=== PATIENT | female | born 1980 | race Caucasian/White ===

== ENCOUNTER 2016-09-17 14:49 | Emergency (ER) | payer MEDICAID ==
[~2016-09-17] VITALS: Wt 79.5 kg
[~2016-09-17 14:49] MED LIST: PREN1TAB49 PO
[2016-09-17] MEDS ORDERED: ACETAMINOPHEN 500 MG TAB PO STA (15:12)
[2016-09-17 15:38] LABS: ADD SCAN DIFF NO
[2016-09-17 15:42] LABS: BASOPHIL # 0.1 10^3/ul (0.0-0.1); BASOPHILS % 0.5 % (0.0-2.0); EOSINOPHILS # 0.1 10^3/ul (0.0-0.5); EOSINOPHILS % 0.8 % (0.0-7.0); HEMOGLOBIN 13.3 g/dl (12.0-16.0); LYMPHOCYTES # 1.8 10^3/ul (0.8-2.9); LYMPHOCYTES % 18.9 % (15.0-51.0); MEAN CORPUSCULAR HEMOGLOBIN 28.6 pg (29.0-33.0); MEAN CORPUSCULAR HGB CONC 32.4 g/dl (32.0-37.0); MEAN CORPUSCULAR VOLUME 88.2 fl (82.0-101.0); MEAN PLATELET VOLUME 12.5 fl (7.4-10.4); MONOCYTE # 0.5 10^3/ul (0.3-0.9); MONOCYTES % 5.6 % (0.0-11.0); NEUTROPHILS % 74.1 % (39.0-77.0); PLATELET COUNT 214 10^3/UL (140-415); RED BLOOD COUNT 4.65 10^6/ul (4.20-5.40); RED CELL DISTRIBUTION WIDTH 13.7 % (11.5-14.5); WHITE BLOOD COUNT 9.5 10^3/ul (4.8-10.8)
[2016-09-17 15:44] LABS: ADD UMIC YES; URINE BILIRUBIN (Dip) NEGATIVE (NEGATIVE); URINE BLOOD (Dip) 3+ (NEGATIVE); URINE COLOR YELLOW (YELLOW); URINE GLUCOSE (Dip) NEGATIVE (NEGATIVE); URINE KETONES (Dip) NEGATIVE (NEGATIVE); URINE LEUKOCYTE ESTERASE (Dip) TRACE (NEGATIVE); URINE NITRITE (Dip) NEGATIVE (NEGATIVE); URINE TOTAL PROTEIN (Dip) TRACE (NEGATIVE); URINE UROBILINOGEN (Dip) 0.2 E.U./dL (0.1-1.0)
--- NOTE | 2016-09-17 15:56 | RADRPT ---
PROCEDURE: US OB/Pelvis. CLINICAL INDICATION: Positive . Vaginal bleeding. TECHNIQUE: Multiple sonographic images of the pelvis were obtained. Transabdominal and transvagin al views of the pelvis are available for review. The images were reviewed on a PACS workstation. COMPARISON: No prior studies are available for comparison. FINDINGS: The uterus measures 8.2 x 5.0 x 5.5 cm. There is no intrauterine or gestational sac ident ified. Endometrial echo complex measures 6.0 mm. The right ovary measures 3.8 cm. Left ovary measu res 2.4 cm. .The bilateral ovaries appear normal in size, shape, morphology, and flow. . No adnexa l masses are seen. There is no free fluid. IMPRESSION: 1. Normal pelvic ultrasound with no intrauterine , adnexal masses or free fluid identified . If the patient has a positive test, differential includes early , recent and ectopic cannot be completely excluded. Recommend clinical and laboratory correlation and follow up if indicated. RPTAT: QQ .Pete Hopkins MD, Date Time Electronically viewed and signed by .Pete Hopkins MD, on 09/17/2016 15:56 .L/
[2016-09-17 16:10] LABS: BACTERIA,URINE MANY; SQUAMOUS EPITHELIAL CELL,UR MODERATE
--- NOTE | 2016-09-17 16:41 | ERD ---
ER Documentation Chief Complaint Date/Time DATE: 09/17/16 TIME: 16:38 Chief Complaint vag bleed, 6 wks preg HPI This a 36-year-old female who presents to the emergency department today for vaginal bleeding for the past day. States she is passing clots. States that she is approximately 5 or 6 weeks . States that she saw her [facility] [employer] on Sunday and everything was fine. States she did not have an ultrasound at that time. States that she has a follow-up appointment on October 03. Denies any fevers or chills, dysuria ROS All systems reviewed and are negative except as per history of present illness. Medications Home Meds Active Scripts Acetaminophen* (Tylophen*) 500 Mg Capsule, 1 CAP PO Q6H Y for PAIN AND OR ELEVATED TEMP, #30 CAP Prov:MANAS MEHTA PA-C 09/17/16 Reported Medications Vits W-Ca,Fe,Fa(<1MG) () 1 Tab Tablet, 1 PO DAILY 11/25/10 PMhx/Soc Medical and Surgical Hx: pt denies Medical Hx, pt denies Surgical Hx Hx Alcohol Use: No Hx Substance Use: No Hx Tobacco Use: No Smoking Status: Never smoker Physical Exam Vitals Vital Signs Date Time Temp Pulse Resp B/P Pulse Ox O2 Delivery O2 Flow Rate FiO2 09/17/16 17:16 97.9 96 18 131/80 100 Room Air 09/17/16 14:52 97.8 97 20 135/82 100 Physical Exam Const: No acute distress Head: Atraumatic Eyes: Normal Conjunctiva ENT: Normal External Ears, Nose and Mouth. Neck: Full range of motion..~ No meningismus. Resp: Clear to auscultation bilaterally Cardio: Regular rate and rhythm, no murmurs Abd: Soft, mild suprapubic tenderness non distended. Normal bowel sounds. No right lower quadrant pain. No left lower quadrant pain. No tenderness McBurney's. Skin: No petechiae or rashes Back: No midline or flank tenderness Ext: No cyanosis, or edema Neur: Awake and alert Psych: Normal Mood and Affect Result Diagram: 09/17/16 1535 Results 24 hrs Laboratory Tests Test 09/17/16 15:35 White Blood Count 9.510^3/ul Red Blood Count 4.6510^6/ul Hemoglobin 13.3g/dl Hematocrit 41.0% Mean Corpuscular Volume 88.2fl Mean Corpuscular Hemoglobin 28.6pg Mean Corpuscular Hemoglobin Concent 32.4g/dl Red Cell Distribution Width 13.7% Platelet Count 45163^3/UL Mean Platelet Volume 12.5fl Neutrophils % 74.1% Lymphocytes % 18.9% Monocytes % 5.6% Eosinophils % 0.8% Basophils % 0.5% Nucleated Red Blood Cells % 0.0/100WBC Neutrophils # 7.010^3/ul Lymphocytes # 1.810^3/ul Monocytes # 0.510^3/ul Eosinophils # 0.110^3/ul Basophils # 0.110^3/ul Nucleated Red Blood Cells # 0.010^3/ul Urine Color YELLOW Urine Clarity CLOUDY Urine pH 5.5 Urine Specific [place] >=1.030 Urine Ketones NEGATIVE Urine Nitrite NEGATIVE Urine Bilirubin NEGATIVE Urine Urobilinogen 0.2 E.U./dL Urine Leukocyte Esterase TRACE Urine Microscopic RBC 2-5/HPF Urine Microscopic WBC 0-2/HPF Urine Squamous Epithelial Cells MODERATE Urine Amorphous Urates MANY Urine Bacteria MANY Urine Hemoglobin 3+ Urine Glucose NEGATIVE% Urine Total Protein TRACE Beta HCG, Quantitative 160.9mIU/ml Current Medications Medications (Trade) Dose Ordered Sig/Bucky Route PRN Reason Start Time Stop Time Status Last Admin Dose Admin Acetaminophen (Tylenol Tab) 500 mg ONCE STAT PO 09/17/16 15:12 09/17/16 15:16 DC 09/17/16 15:27 DIAGNOSTIC IMAGING REPORT Patient: MAYRA YOUSIF : 1980 Age: 36 Sex: F [id number] [id number] DOS: 09/17/16 1512 Ordering MD: MANAS MEHTA PA-C Location: [facility] Room/Bed: PROCEDURE: US OB/Pelvis. CLINICAL INDICATION: Positive . Vaginal bleeding. TECHNIQUE: Multiple sonographic images of the pelvis were obtained. Transabdominal and transvaginal views of the pelvis are available for review. The images were reviewed on a PACS workstation. COMPARISON: No prior studies are available for comparison. FINDINGS: The uterus measures 8.2 x 5.0 x 5.5 cm. There is no intrauterine or gestational sac identified. Endometrial echo complex measures 6.0 mm. The right ovary measures 3.8 cm. Left ovary measures 2.4 cm. .The bilateral ovaries appear normal in size, shape, morphology, and flow. . No adnexal masses are seen. There is no free fluid. IMPRESSION: 1. Normal pelvic ultrasound with no intrauterine , adnexal masses or free fluid identified. If the patient has a positive test, differential includes early , recent and ectopic cannot be completely excluded. Recommend clinical and laboratory correlation and follow up if indicated. RPTAT: QQ .Pete Hopkins MD, MD Date Time Electronically viewed and signed by .Pete Hopkins MD, MD on 09/17/2016 15:56 .L/ CC: MANAS MEHTA PA-C Procedures/MDM This is a 36-year-old female presents to the emergency department today for vaginal bleeding for the past day. Patient indicated she was a proximal 5- 6 weeks . Given this I did obtain a complete OB workup Laboratory work shows no elevated white blood cell count. She is not anemic. Platelets are within normal limits. UA shows trace leukocyte esterase. Beta quant hCG 160.9 Rh status is O+ Ultrasound shows a normal pelvic ultrasound with no intrauterine , adnexal masses or free fluid. There is no intrauterine or gestational sac identified. Patient symptoms at this time most consistent with vaginal bleeding in early and likely failed as her beta quant is very low, versus early normal . Ectopic cannot be ruled out at this time however patient does not have significant amount of pain and she reported passing clots. Patient was given Tylenol here in the emergency department. I will give her prescription for home. I have explained the results the patient multiple times. Patient was instructed to call her [facility] clinic and get a repeat beta quant in 48 hours. She may return here for that if she is unable to see her legal process specialist earlier. Patient understood. At this time the patient is stable for discharge and outpatient management. Patient should follow up with their PCP in the next 1-2 days. They may return to the emergency department sooner for any persistent or worsening of symptoms. Patient understood and agreed with the plan. Departure Diagnosis: Primary Impression: Vaginal bleeding in patient at less than 20 weeks gestation Condition: MANAS Roberts PA-C Sep 17, 2016 16:41
[2016-09-17] MEDS ORDERED: ACET500C5 PO (16:52)
[2016-09-17 17:16] VITALS: BP 131/80; PULSE 96; RESP 18; TEMP 97.9
== END 2016-09-17 17:17 | disposition home or self-care (01) ==
LOC: FTE 14:49
DX: O20.9 Hemorrhage in early pregnancy, unspecified (principal); Z3A.01 Less than 8 weeks gestation of pregnancy
CPT/HCPCS: 36415; 76801; 76817; 81001; 84702; 85025; 86900; 86901; Z7502; Z7610

== ENCOUNTER 2016-09-20 08:39 | Emergency (ER) | payer MEDICAID ==
[~2016-09-20] VITALS: Ht 157.5 cm; Wt 89.0 kg
[~2016-09-20 08:39] MED LIST changes: +ACET500C5 PO
[2016-09-20 08:42] VITALS: Ht 157.5 cm; Wt 89.0 kg
[2016-09-20] MEDS ORDERED: ONDANSETRON (ODT) 4 MG TAB ODT STA (09:13)
[2016-09-20 09:31] LABS: ADD SCAN DIFF NO
[2016-09-20 09:34] LABS: ADD UMIC YES; URINE BILIRUBIN (Dip) NEGATIVE (NEGATIVE); URINE BLOOD (Dip) 3+ (NEGATIVE); URINE COLOR LT. YELLOW (YELLOW); URINE GLUCOSE (Dip) NEGATIVE (NEGATIVE); URINE KETONES (Dip) NEGATIVE (NEGATIVE); URINE LEUKOCYTE ESTERASE (Dip) 1+ (NEGATIVE); URINE NITRITE (Dip) NEGATIVE (NEGATIVE); URINE TOTAL PROTEIN (Dip) NEGATIVE (NEGATIVE); URINE UROBILINOGEN (Dip) 0.2 E.U./dL (0.1-1.0)
[2016-09-20 09:36] LABS: BASOPHIL # 0.1 10^3/ul (0.0-0.1); BASOPHILS % 0.6 % (0.0-2.0); EOSINOPHILS # 0.1 10^3/ul (0.0-0.5); EOSINOPHILS % 0.7 % (0.0-7.0); HEMATOCRIT 40.8 % (37.0-47.0); HEMOGLOBIN 13.5 g/dl (12.0-16.0); LYMPHOCYTES # 1.5 10^3/ul (0.8-2.9); LYMPHOCYTES % 18.2 % (15.0-51.0); MEAN CORPUSCULAR HEMOGLOBIN 28.8 pg (29.0-33.0); MEAN CORPUSCULAR HGB CONC 33.1 g/dl (32.0-37.0); MEAN PLATELET VOLUME 12.3 fl (7.4-10.4); MONOCYTE # 0.4 10^3/ul (0.3-0.9); MONOCYTES % 5.1 % (0.0-11.0); NEUTROPHIL # 6.3 10^3/ul (1.6-7.5); PLATELET COUNT 208 10^3/UL (140-415); RED BLOOD COUNT 4.69 10^6/ul (4.20-5.40); RED CELL DISTRIBUTION WIDTH 13.3 % (11.5-14.5); WHITE BLOOD COUNT 8.4 10^3/ul (4.8-10.8)
[2016-09-20 09:42] LABS: BACTERIA,URINE MANY
--- NOTE | 2016-09-20 09:55 | RADRPT ---
PROCEDURE: US OB. CLINICAL INDICATION: Vaginal bleeding. TECHNIQUE: Transabdominal and transvaginal imaging of the uterus was performed. COMPARISON: 09/17/2016. FINDINGS: There is no intrauterine . The endometrium is mildly thickened and heterogeneous in echote xture. A corpus luteum cyst is suggested within the right ovary. Normal-appearing follicles are pr esent within the left ovary. No worrisome adnexal mass. There is no free fluid or fluid collection . IMPRESSION: No intrauterine or worrisome adnexal mass. Recommend correlation with serial serum maternal beta HCG levels and close interval sonographic foll ow-up. RPTAT: EE .Cyo Alston MD, MD Date Time Electronically viewed and signed by .Coy Alston MD, MD on 09/20/2016 10:00 .C/
--- NOTE | 2016-09-20 13:41 | ERD ---
ER Documentation Chief Complaint Date/Time DATE: 09/20/16 TIME: 13:38 Chief Complaint FOR REPEAT BHCG HERE LAST SUNDAY, HPI This patient is a 36-year-old female presenting to the emergency department for repeat beta hCG after being tested for it approximately 3 days ago. She has had some mild vaginal spotting but no significant bleeding. She also complains of intermittent nausea. LMP was 08/11/2016. Her vaginal bleeding has decreased since she was seen here 3 days ago. She denies abdominal pain, suprapubic pain , back pain, suprapubic cramping, vomiting, diarrhea, fevers, chills, or other symptoms. ROS All systems reviewed and are negative except as per history of present illness. Medications Home Meds Active Scripts Acetaminophen* (Tylophen*) 500 Mg Capsule, 1 CAP PO Q6H Y for PAIN AND OR ELEVATED TEMP, #30 CAP Prov:MANAS MEHTA PA-C 09/17/16 Reported Medications Vits W-Ca,Fe,Fa(<1MG) () 1 Tab Tablet, 1 PO DAILY 11/25/10 PMhx/Soc Medical and Surgical Hx: pt denies Medical Hx, pt denies Surgical Hx Hx Alcohol Use: No Hx Substance Use: No Hx Tobacco Use: No FmHx Noncontributory for chief complaint Physical Exam Vitals Vital Signs Date Time Temp Pulse Resp B/P Pulse Ox O2 Delivery O2 Flow Rate FiO2 09/20/16 08:42 98.1 80 20 130/80 99 Physical Exam Const: Nontoxic, well-appearing female resting in no acute distress. Head: Atraumatic Eyes: Normal Conjunctiva ENT: Normal External Ears, Nose and Mouth. Neck: Full range of motion..~ No meningismus. Resp: Clear to auscultation bilaterally Cardio: Regular rate and rhythm, no murmurs Abd: Soft, non tender, non distended. Normal bowel sounds : There is no suprapubic tenderness to palpation. There is no CVA tenderness. Skin: No petechiae or rashes Back: No midline or flank tenderness Ext: No cyanosis, or edema Neur: Awake and alert Psych: Normal Mood and Affect Result Diagram: 09/20/16923 Results 24 hrs Laboratory Tests Test 09/20/16 09:16 09/20/16 09:24 Urine Color LT. YELLOW Urine Clarity CLEAR Urine pH 5.5 Urine Specific [place] 1.025 Urine Ketones NEGATIVE Urine Nitrite NEGATIVE Urine Bilirubin NEGATIVE Urine Urobilinogen 0.2 E.U./dL Urine Leukocyte Esterase 1+ Urine Microscopic RBC 10-25/HPF Urine Microscopic WBC 5-10/HPF Urine Epithelial Cells MODERATE Urine Bacteria MANY Urine Hemoglobin 3+ Urine Glucose NEGATIVE% Urine Total Protein NEGATIVE White Blood Count 8.410^3/ul Red Blood Count 4.6910^6/ul Hemoglobin 13.5g/dl Hematocrit 40.8% Mean Corpuscular Volume 87.0fl Mean Corpuscular Hemoglobin 28.8pg Mean Corpuscular Hemoglobin Concent 33.1g/dl Red Cell Distribution Width 13.3% Platelet Count 99668^3/UL Mean Platelet Volume 12.3fl Neutrophils % 75.0% Lymphocytes % 18.2% Monocytes % 5.1% Eosinophils % 0.7% Basophils % 0.6% Nucleated Red Blood Cells % 0.0/100WBC Neutrophils # 6.310^3/ul Lymphocytes # 1.510^3/ul Monocytes # 0.410^3/ul Eosinophils # 0.110^3/ul Basophils # 0.110^3/ul Nucleated Red Blood Cells # 0.010^3/ul Beta HCG, Quantitative 240.7mIU/ml Current Medications Medications (Trade) Dose Ordered Sig/Bucky Route PRN Reason Start Time Stop Time Status Last Admin Dose Admin Ondansetron HCl (Zofran Odt) 4 mg ONCE STAT ODT 09/20/16 09:13 09/20/16 09:14 DC 09/20/16 09:17 [place] [address] Radiology Main Line: [phone] DIAGNOSTIC IMAGING REPORT Patient: MAYRA YOUSIF : 1980 Age: 36 Sex: F MR #: [id number] DOS: 09/20/16 0913 Ordering MD: MED FARIAS PA-C [facility] Room/Bed: PROCEDURE: US OB. CLINICAL INDICATION: Vaginal bleeding. TECHNIQUE: Transabdominal and transvaginal imaging of the uterus was performed. COMPARISON: 09/17/2016. FINDINGS: There is no intrauterine . The endometrium is mildly thickened and heterogeneous in echotexture. A corpus luteum cyst is suggested within the right ovary. Normal-appearing follicles are present within the left ovary. No worrisome adnexal mass. There is no free fluid or fluid collection. IMPRESSION: No intrauterine or worrisome adnexal mass. Recommend correlation with serial serum maternal beta HCG levels and close interval sonographic follow-up. RPTAT: EE .Coy Alston MD, MD Date Time Electronically viewed and signed by .Coy Alston MD, MD on 09/20/2016 10:00 .C/ CC: MED FARIAS PA-C Procedures/[facility] White blood cell count is 8.4, hemoglobin 13.5. Quantitative hCG is 240.7, which has more than doubled since her last visit 2 days ago. Patient is O+. Urinalysis showed 1+ leukocytes but the patient was asymptomatic showing no signs of dysuria. Urinalysis was sent for urine culture to further determine bacterial growth and she was not treated currently because she was asymptomatic and had a negative clinical examination. Pelvic ultrasound shows No intrauterine or worrisome adnexal mass. Radiology interpreted by the radiologist. Differential includes early , missed or ectopic . No adnexal masses appreciated. Patient presents with mild vaginal spotting. Patient will be discharged home with instructions on the importance of a 2 day follow-up. Signs and symptoms do not suggest endometritis or septic . Patient return sooner for fevers, vomiting, shortness of breath or chest pain. Signs and symptoms do not suggest appendicitis, acute abdomen but patient should recheck as directed. I discussed this case with Dr. Ollie Staton, who agreed with the history, clinical examination, and overall ED course. He recommended close follow-up in 48 hours here or with the patient's IMPROVEMENT MANAGER specialist. Departure Diagnosis: Primary Impression: Vaginal bleeding in patient at less than 20 weeks ges... Condition: Fair Patient Instructions: Bleeding During Early Referrals: IMPROVEMENT MANAGER [place] [id number] [address] OFFICE FAX , [address] [place] [address] DR. PHILLIPS, [place] [address] [place] [address] [address] OLIVAS, [facility] [address] [facility], [address] [address] DR [facility]ZR, [facility] [address] [place] [address] [facility] [address] [place] [address] [facility] [address] - [address] TILLEY[address] [place] [address], [place] [address] DR HOLDEN, KAMAR [address] [facility]. [address], [place] [address] DR BRODERICK, [facility] [address] [place], [place] [id number] Additional Instructions: No mas mejor en 2-3 meyers, regresar. Mas peor en 24 horas, regresear rapidamente. Ir a doctor primario in 5-7 meyers. Usar instrucciones cuando roma medicamento. MED FARIAS PA-C Sep 20, 2016 13:41
== END 2016-09-20 11:15 | disposition home or self-care (01) ==
LOC: FTE 08:39
DX: O20.9 Hemorrhage in early pregnancy, unspecified (principal); Z3A.00 Weeks of gestation of pregnancy not specified
CPT/HCPCS: 76801; 76817; 81001; 84702; 85025; 87086; Z7502; Z7610

== ENCOUNTER 2016-10-21 10:22 | Emergency (ER) | payer MEDICAID ==
[~2016-10-21] VITALS: Ht 165.1 cm; Wt 99.0 kg
[2016-10-21 10:24] VITALS: Ht 165.1 cm; Wt 99.0 kg
[2016-10-21 11:28] LABS: ADD SCAN DIFF NO
[2016-10-21 11:30] LABS: BASOPHILS % 0.5 % (0.0-2.0); EOSINOPHILS # 0.1 10^3/ul (0.0-0.5); EOSINOPHILS % 2.1 % (0.0-7.0); HEMATOCRIT 39.9 % (37.0-47.0); HEMOGLOBIN 13.2 g/dl (12.0-16.0); LYMPHOCYTES # 1.6 10^3/ul (0.8-2.9); LYMPHOCYTES % 25.7 % (15.0-51.0); MEAN CORPUSCULAR HEMOGLOBIN 29.5 pg (29.0-33.0); MEAN CORPUSCULAR HGB CONC 33.1 g/dl (32.0-37.0); MEAN CORPUSCULAR VOLUME 89.3 fl (82.0-101.0); MEAN PLATELET VOLUME 12.3 fl (7.4-10.4); MONOCYTE # 0.4 10^3/ul (0.3-0.9); MONOCYTES % 6.6 % (0.0-11.0); NEUTROPHILS % 64.6 % (39.0-77.0); PLATELET COUNT 172 10^3/UL (140-415); RED BLOOD COUNT 4.47 10^6/ul (4.20-5.40); RED CELL DISTRIBUTION WIDTH 13.6 % (11.5-14.5); WHITE BLOOD COUNT 6.2 10^3/ul (4.8-10.8)
--- NOTE | 2016-10-21 11:46 | RADRPT ---
PROCEDURE: OB Ultrasound. CLINICAL INDICATION: Positive test. Vaginal bleeding. TECHNIQUE: Ultrasound of the pelvis was performed with transabdominal and transvaginal sonography in the axial and sagittal planes. COMPARISON: 09/20/2016. FINDINGS: There is no intrauterine gestational sac. The uterus measures 8.0 x 4.4 x 5.0 cm. Endometrial thic kness is 7 mm. There is a posterior fundal fibroid measuring 1.7 x 1.6 x 1.4 cm. There is no other uterine mass. The right ovary appears normal measuring 2.6 x 1.4 x 1.6 cm. The left ovary appears normal measuring 2.9 x 2.0 x 2.4 cm. Color Doppler and pulsed Doppler sonography demonstrate normal flow to the ovaries. There is no other pelvic mass or free fluid. IMPRESSION: 1. No intrauterine gestational sac. If the patient has a positive test, ectopic gestatio n cannot be excluded. 2. Posterior fundal fibroid measuring 1.7 cm. 3. Otherwise normal study. RPTAT: QQ .Ollie Duncan MD, MD Date Time Electronically viewed and signed by .Ollie Duncan MD, on 10/21/2016 11:46 .R/
[2016-10-21 14:00] LABS: ADD UMIC YES; UR ASCORBIC ACID 40 mg/dL (NEGATIVE); UR BACTERIA FEW /HPF (NONE SEEN); UR BILIRUBIN (Dip) NEGATIVE (NEGATIVE); UR BLOOD (Dip) 3+ mg/dL (NEGATIVE); UR CLARITY CLOUDY (CLEAR); UR COLOR RED (YELLOW); UR GLUCOSE (Dip) NEGATIVE (NEGATIVE); UR KETONES (Dip) NEGATIVE (NEGATIVE); UR LEUKOCYTE ESTERASE (Dip) 1+ Leu/ul (NEGATIVE); UR MUCUS FEW /HPF (NONE SEEN); UR NITRITE (Dip) NEGATIVE (NEGATIVE); UR RBC > 182 /HPF (0-5); UR SPECIFIC GRAVITY (Dip) 1.031 (1.003-1.030); UR SQUAMOUS EPITHELIAL CELL MODERATE /HPF (FEW); UR TOTAL PROTEIN (Dip) 2+ mg/dl (NEGATIVE); UR UROBILINOGEN (Dip) NEGATIVE (NEGATIVE); UR WBC CLUMPS FEW /HPF (NONE SEEN)
[2016-10-21] MEDS ORDERED: ACET325T33 PO (14:28)
[2016-10-21] MEDS ORDERED: NITR-58 PO (14:28)
--- NOTE | 2016-10-21 15:53 | ERD ---
ER Documentation Chief Complaint Date/Time DATE: 10/21/16 TIME: 15:49 Chief Complaint 5 WEEKS ,VAGINAL BLEEDING,PELVIC PAIN HPI 36-year-old female patient who is a A0 presents to the ED complaining of vaginal bleeding that occurred yesterday. States that she started to spot yesterday and it became slightly heavier today. Patient had to change 2 pads. Denies any chest pain, shortness of breath, wheezing, vaginal discharge, abdominal pain, nausea, vomiting, diarrhea, constipation. Reports that one month ago, she was experiencing similar symptoms. States that the bleeding did resolve and came back yesterday. Reports that her last menses was on August 10, 2016. Reports that she sees an [facility] but is unsure of the [facility] WORKER [facility]'s name. ROS All systems reviewed and are negative except as per history of present illness. Medications Home Meds Active Scripts Ibuprofen* (Motrin*) 600 Mg Tab, 600 MG PO Q6, #30 TAB Prov:LEONIDAS AVENDANO PA-C 10/23/16 Acetaminophen* (Tylenol*) 325 Mg Tablet, 2 TAB PO Q8 Y for PAIN AND OR ELEVATED TEMP, #20 TAB Prov:LUCY JARAMILLO PA-C 10/21/16 Nitrofurantoin Monohyd Macrocr* (Macrobid*) 100 Mg Capsr, 100 MG PO BID for 7 Days, CAP Prov:LUCY JARAMILLO PA-C 10/21/16 Acetaminophen* (Tylophen*) 500 Mg Capsule, 1 CAP PO Q6H Y for PAIN AND OR ELEVATED TEMP, #30 CAP Prov:MANAS MEHTA PA-C 09/17/16 Reported Medications Vits W-Ca,Fe,Fa(<1MG) () 1 Tab Tablet, 1 PO DAILY 11/25/10 Allergies Allergies: Coded Allergies: No Known Allergy (Unverified , 10/23/16) PMhx/Soc Medical and Surgical Hx: pt denies Medical Hx, pt denies Surgical Hx Hx Alcohol Use: No Hx Substance Use: No Hx Tobacco Use: No Smoking Status: Never smoker Physical Exam Vitals Vital Signs Date Time Temp Pulse Resp B/P Pulse Ox O2 Delivery O2 Flow Rate FiO2 10/21/16 10:24 97.9 91 18 124/69 99 Physical Exam Const: [id number], well-nourished. In no acute distress. Head: Atraumatic, normocephalic Eyes: Normal Conjunctiva without injection. No purulent discharge. ENT: Normal external ear, nose. Moist oropharynx without tonsillar exudates. Non -erythematous pharynx. Uvula midline. No drooling. No trismus. Neck: No cervical midline tenderness. Full range of motion. No meningismus. No cervical lymphadenopathy. No JVD. Resp: Clear to auscultation bilaterally. No wheezing, rhonchi, rales, or crackles. No accessory muscle use. No retractions. Cardio: Regular rate and rhythm. No murmurs, rubs or gallops. Abd: Soft, nontender, non distended. Normal bowel sounds. No palpable masses. No rebound tenderness. No guarding. Negative McBurney's point. Negative psoas sign. Negative obturator sign. Skin: No petechiae or rashes Back: No midline tenderness. No CVA tenderness. Ext: No cyanosis, or edema. Neur: Awake and alert. Normal gait. Normal coordination. Psych: Normal Mood and Affect Result Diagram: 10/21/16 1110 Results 24 hrs Laboratory Tests Test 10/21/16 11:10 10/21/16 13:00 White Blood Count 6.210^3/ul Red Blood Count 4.4710^6/ul Hemoglobin 13.2g/dl Hematocrit 39.9% Mean Corpuscular Volume 89.3fl Mean Corpuscular Hemoglobin 29.5pg Mean Corpuscular Hemoglobin Concent 33.1g/dl Red Cell Distribution Width 13.6% Platelet Count 13044^3/UL Mean Platelet Volume 12.3fl Neutrophils % 64.6% Lymphocytes % 25.7% Monocytes % 6.6% Eosinophils % 2.1% Basophils % 0.5% Nucleated Red Blood Cells % 0.0/100WBC Neutrophils # 4.010^3/ul Lymphocytes # 1.610^3/ul Monocytes # 0.410^3/ul Eosinophils # 0.110^3/ul Basophils # 0.010^3/ul Nucleated Red Blood Cells # 0.010^3/ul Beta HCG, Quantitative 597.1mIU/ml Urine Color RED Urine Clarity CLOUDY Urine pH 6.0 Urine Specific [place] 1.031 Urine Ketones NEGATIVEmg/dL Urine Nitrite NEGATIVEmg/dL Urine Bilirubin NEGATIVEmg/dL Urine Urobilinogen NEGATIVEmg/dL Urine Leukocyte Esterase 1+Demian/ul Urine Microscopic RBC > 182/HPF Urine Microscopic WBC 131/HPF Urine Squamous Epithelial Cells MODERATE/HPF Urine Bacteria FEW/HPF Urine Mucus FEW/HPF Urine Hemoglobin 3+mg/dL Urine Glucose NEGATIVEmg/dL Urine Total Protein 2+mg/dl Procedures/MDM This is a 36-year-old female patient with no significant past medical history presents to the ED as a presents to the ED for vaginal bleeding. Patient is afebrile and nontoxic-appearing. Patient has normal vital signs. An ultrasound, beta-hCG, CBC, type and RH, UA was ordered to evaluate patient. CBC: No evidence of severe infection or anemia Urine: No elevation in nitrites, leukocyte esterase, hematuria. No evidence of UTI Rh: O positive No indication for Rhogam at this time. beta Hc.1 PROCEDURE: OB Ultrasound. CLINICAL INDICATION: Positive test. Vaginal bleeding. TECHNIQUE: Ultrasound of the pelvis was performed with transabdominal and transvaginal sonography in the axial and sagittal planes. COMPARISON: 09/20/2016. FINDINGS: There is no intrauterine gestational sac. The uterus measures 8.0 x 4.4 x 5.0 cm. Endometrial thickness is 7 mm. There is a posterior fundal fibroid measuring 1.7 x 1.6 x 1.4 cm. There is no other uterine mass. The right ovary appears normal measuring 2.6 x 1.4 x 1.6 cm. The left ovary appears normal measuring 2.9 x 2.0 x 2.4 cm. Color Doppler and pulsed Doppler sonography demonstrate normal flow to the ovaries. There is no other pelvic mass or free fluid. IMPRESSION: 1. No intrauterine gestational sac. If the patient has a positive test, ectopic gestation cannot be excluded. 2. Posterior fundal fibroid measuring 1.7 cm. 3. Otherwise normal study. Patient's beta hCG was 240.7 on September 20, 2016. Today her beta hCG is 597.1. Patient likely has a failed gestation as there is no intrauterine gestational sac noted on her ultrasound. This was discussed with the laborist on calll, Dr. Jeong. Patient likely has a failed gestation however she was still instructed to follow-up in 2 days for repeat beta hCG to rule out ectopic as there could be a slight chance since patient has a positive . Patient's bleeding symptoms have stabilized while in the department. At this time ectopic cannot be ruled out. Low suspicion for symptomatic anemia, sepsis, PID, appendicitis, ovarian torsion, tubo- ovarian abscess, surgical abdomen, or other emergent conditions. Patient was educated that there is a risk for threatened . Discharge medications: Tylenol, Macrobid Patient to follow up with [facility] in 2 days for further evaluation and treatment for further evaluation and treatment. Patient is to return sooner to the ED for any worsening symptoms. Patient's questions were answered. Patient understood and agreed with discharge plan. Departure Diagnosis: Primary Impression: Vaginal bleeding in patient at less than 20 weeks ges... Condition: Stable Patient Instructions: Urinary Tract Infections in Women, Bleeding During Early Referrals: ON LICENSE OF [facility] YOU HAVE RECEIVED A MEDICAL SCREENING EXAM AND THE RESULTS INDICATE THAT YOU DO NOT HAVE A CONDITION THAT REQUIRES URGENT TREATMENT IN THE EMERGENCY DEPARTMENT. FURTHER EVALUATION AND TREATMENT OF YOUR CONDITION CAN WAIT UNTIL YOU ARE SEEN IN YOUR DOCTORS OFFICE WITHIN THE NEXT 1-2 DAYS. IT IS YOUR RESPONSIBILITY TO MAKE AN APPOINTMENT FOR FOLOW-UP CARE. IF YOU HAVE A PRIMARY DOCTOR --you should call your primary doctor and schedule an appointment IF YOU DO NOT HAVE A PRIMARY DOCTOR YOU CAN CALL OUR PHYSICIAN REFERRAL HOTLINE AT IF YOU CAN NOT AFFORD TO SEE A PHYSICIAN YOU CAN CHOSE FROM THE FOLLOWING [facility] [address] [facility]. [facility] [address] [facility] [facility] [address] [facility]. [facility] [address] [facility]. [facility] [address] [facility]. [facility]. [address] [facility] YOU HAVE RECEIVED A MEDICAL SCREENING EXAM AND THE RESULTS INDICATE THAT YOU DO NOT HAVE A CONDITION THAT REQUIRES URGENT TREATMENT IN THE EMERGENCY DEPARTMENT. FURTHER EVALUATION AND TREATMENT OF YOUR CONDITION CAN WAIT UNTIL YOU ARE SEEN IN YOUR DOCTORS OFFICE WITHIN THE NEXT 1-2 DAYS. IT IS YOUR RESPONSIBILITY TO MAKE AN APPOINTMENT FOR FOLOW-UP CARE. IF YOU HAVE A PRIMARY DOCTOR --you should call your primary doctor and schedule and appointment IF YOU DO NOT HAVE A PRIMARY DOCTOR YOU CAN CALL OUR PHYSICIAN REFERRAL HOTLINE AT . IF YOU CAN NOT AFFORD TO SEE A PHYSICIAN YOU CAN CHOSE FROM THE FOLLOWING [facility] INSTITUTIONS: [facility] [address] [place] [address] [facility] [address] [place] [address] [facility] [address] [place] [address] [facility] URGENT CARE/SPECIALTIES Additional Instructions: Volver al ED en 2 [place] para repetir la beta obra de juan de Hcg para descartar embarazo ectpico. Regrese a estas instalaciones si no se mejora aftab esperbamos o aftab le dijimos - por empeoramiento de la hemorragia vaginal, dolor abdominal, dolor p lvico, nuseas, vmitos, fiebre. LUCY JARAMILLO PA-C Oct 21, 2016 15:53
--- NOTE | 2016-10-29 08:30 | CONS ---
DATE OF ADMISSION: 10/21/2016 DATE OF CONSULTATION: 10/21/2016 Thank you for consulting with us. HISTORY OF PRESENT ILLNESS: This is a 56-year-old 3 para 2, admitted to the emergency room with chief complaint of spotting. Patient had the same history last month in September. No other associated symptoms. No abdominal pain. PAST MEDICAL HISTORY: Denies. PAST SURGICAL HISTORY: Denies. ALLERGIES: NKDA. PHYSICAL EXAMINATION: VITAL SIGNS: Stable. GENERAL APPEARANCE: Normal. ABDOMEN: Nontender, nondistended. GENITAL: 1-2 clots were noted in the vaginal vault, status post . LABORATORY: Ultrasound showed endometrial thickness of 7 mm and no sign of ectopic . ASSESSMENT AND PLAN: This is a 56-year-old with possible diagnosis of complete versus ectopic and this is a desired . The patient was advised to come back to the emergency room in 2 days for repeat beta hCG. Also, she knows that if she has any abdominal pain or any vaginal bleeding, any unusual symptoms, she needs to come back to the emergency room immediately as ectopic has not been completely ruled out in this visit. Dictated By: Richard Rosas MD /sumit/colleen /Document#: [id number]
== END 2016-10-21 15:08 | disposition home or self-care (01) ==
LOC: FTE 10:22
DX: O20.9 Hemorrhage in early pregnancy, unspecified (principal); R10.2 Pelvic and perineal pain; Z3A.01 Less than 8 weeks gestation of pregnancy
CPT/HCPCS: 36415; 76801; 76817; 81001; 84702; 85025; 86900; 86901

== ENCOUNTER 2016-10-23 08:51 | Emergency (ER) | payer MEDICAID ==
[~2016-10-23] VITALS: Ht 162.6 cm; Wt 100.0 kg
[~2016-10-23 08:51] MED LIST changes: +ACET325T33 PO; +NITR-58 PO
[2016-10-23 08:54] VITALS: Ht 162.6 cm; Wt 100.0 kg
--- NOTE | 2016-10-23 09:58 | ERD ---
ER Documentation Chief Complaint Date/Time DATE: 10/23/16 TIME: 09:55 Chief Complaint PT here for 48 follow up blood and ultrasound, VB/4 weeks preg. HPI This is a 36-year-old female 3 para 2 A0 who returns to the emergency department for a recheck of blood work and first trimester ultrasound. Patient was seen and evaluated at this emergency department 48 hours ago after she started experiencing pain and vaginal bleeding. It was presumed that the patient likely had a failed gestation however she was instructed to return for follow-up lab work and to rule out ectopic . She denies abdominal pain , bleeding, nausea, vomiting, abdominal pain, chest pain or shortness of breath. She denies vaginal discharge, fever, or chills. ROS All systems reviewed and are negative except as per history of present illness. Medications Home Meds Active Scripts Acetaminophen* (Tylenol*) 325 Mg Tablet, 2 TAB PO Q8 Y for PAIN AND OR ELEVATED TEMP, #20 TAB Prov:LUCY JARAMILLO PA-C 10/21/16 Nitrofurantoin Monohyd Macrocr* (Macrobid*) 100 Mg Capsr, 100 MG PO BID for 7 Days, CAP Prov:LUCY JARAMILLO PA-C 10/21/16 Acetaminophen* (Tylophen*) 500 Mg Capsule, 1 CAP PO Q6H Y for PAIN AND OR ELEVATED TEMP, #30 CAP Prov:MANAS MEHTA PA-C 09/17/16 Reported Medications Vits W-Ca,Fe,Fa(<1MG) () 1 Tab Tablet, 1 PO DAILY 11/25/10 Allergies Allergies: Coded Allergies: No Known Allergy (Unverified , 10/23/16) PMhx/Soc Hx Alcohol Use: No Hx Substance Use: No Hx Tobacco Use: No Physical Exam Vitals Vital Signs Date Time Temp Pulse Resp B/P Pulse Ox O2 Delivery O2 Flow Rate FiO2 10/23/16 08:54 98.8 78 16 134/83 99 Physical Exam Const: Well-developed, well-nourished, no acute distress Head: Atraumatic Eyes: Normal Conjunctiva ENT: Normal External Ears, Nose and Mouth. Neck: Full range of motion..~ No meningismus. Resp: Clear to auscultation bilaterally Cardio: Regular rate and rhythm, no murmurs Abd: Soft, non tender, non distended. Normal bowel sounds Skin: No petechiae or rashes Back: No midline or flank tenderness Ext: No cyanosis, or edema Neur: Awake and alert Psych: Normal Mood and Affect Result Diagram: 10/23/16 0959 Results 24 hrs Laboratory Tests Test 10/23/16 09:59 White Blood Count 6.110^3/ul Red Blood Count 4.4510^6/ul Hemoglobin 12.8g/dl Hematocrit 39.7% Mean Corpuscular Volume 89.2fl Mean Corpuscular Hemoglobin 28.8pg Mean Corpuscular Hemoglobin Concent 32.2g/dl Red Cell Distribution Width 13.4% Platelet Count 08430^3/UL Mean Platelet Volume 12.6fl Neutrophils % 66.1% Lymphocytes % 25.0% Monocytes % 6.3% Eosinophils % 1.5% Basophils % 0.8% Nucleated Red Blood Cells % 0.0/100WBC Neutrophils # 4.010^3/ul Lymphocytes # 1.510^3/ul Monocytes # 0.410^3/ul Eosinophils # 0.110^3/ul Basophils # 0.110^3/ul Nucleated Red Blood Cells # 0.010^3/ul Urine Color YELLOW Urine Clarity CLEAR Urine pH 7.0 Urine Specific [place] 1.019 Urine Ketones NEGATIVEmg/dL Urine Nitrite NEGATIVEmg/dL Urine Bilirubin NEGATIVEmg/dL Urine Urobilinogen NEGATIVEmg/dL Urine Leukocyte Esterase NEGATIVELeu/ul Urine Hemoglobin NEGATIVEmg/dL Urine Glucose NEGATIVEmg/dL Urine Total Protein NEGATIVEmg/dl Beta HCG, Quantitative 494.7mIU/ml Procedures/[facility] 36-year-old female who returns to the emergency department for follow-up blood work and ultrasound. Patient was initially seen on 21 October for vaginal bleeding and cramping at approximately 4 weeks gestation. An ultrasound was performed at that time and was without evidence of a gestational sac. Patient returns to rule out possible ectopic . She does not report any complaints today and is well-appearing upon arrival. Physical exam today unremarkable for any abdominal or flank tenderness. CBC showed no evidence of systemic infection or severe anemia. UA showed no evidence of acute infection or hematuria. BETA HCG MEASURED AT 494.7 which has trended down since her last visit 48 hours ago. HCG ON 10/21/16: 591 Vaginal ultrasound without evidence of an intrauterine . Ovaries were visualized. There is no adnexal mass or free fluid. Given that the patient is not complaining of any pain, is nontender, has stopped bleeding and exhibits a down trending beta hCG level, I have low suspicion for acute ectopic at this time. Patient is well-appearing, nontoxic and stable vitals upon arrival. Low suspicion for ovarian torsion, tubo-ovarian abscess, pelvic inflammatory disease, urinary tract infection, severe systemic illness, or sepsis. Patient advised to follow-up with [facility]. Based on patient's history of present illness and physical examination the decision was made to discharge. There is no evidence of life threatening injuries or illnesses at this time. On re-examination, patient resting in no distress, stable vital signs, reports feeling better and safe for discharge with outpatient follow up with PMD in 1-2 days. Patient given return precautions. Based on patient's history of present illness and physical examination the decision was made to discharge. The patient was re-evaluated after ED treatment and stabilizing measures, and symptoms have improved. There is no evidence of life threatening injuries or illnesses at this time. On re-examination, patient resting in no distress, stable vital signs, reports feeling better and safe for discharge with outpatient follow up with PMD in 1-2 days. Patient given return precautions. LEONIDAS AVENDANO PA-C Oct 23, 2016 09:57
[2016-10-23 10:15] LABS: ADD SCAN DIFF NO
[2016-10-23 10:20] LABS: BASOPHIL # 0.1 10^3/ul (0.0-0.1); BASOPHILS % 0.8 % (0.0-2.0); EOSINOPHILS # 0.1 10^3/ul (0.0-0.5); EOSINOPHILS % 1.5 % (0.0-7.0); HEMATOCRIT 39.7 % (37.0-47.0); HEMOGLOBIN 12.8 g/dl (12.0-16.0); LYMPHOCYTES # 1.5 10^3/ul (0.8-2.9); MEAN CORPUSCULAR HEMOGLOBIN 28.8 pg (29.0-33.0); MEAN CORPUSCULAR HGB CONC 32.2 g/dl (32.0-37.0); MEAN CORPUSCULAR VOLUME 89.2 fl (82.0-101.0); MEAN PLATELET VOLUME 12.6 fl (7.4-10.4); MONOCYTE # 0.4 10^3/ul (0.3-0.9); MONOCYTES % 6.3 % (0.0-11.0); NEUTROPHILS % 66.1 % (39.0-77.0); PLATELET COUNT 175 10^3/UL (140-415); RED BLOOD COUNT 4.45 10^6/ul (4.20-5.40); RED CELL DISTRIBUTION WIDTH 13.4 % (11.5-14.5); WHITE BLOOD COUNT 6.1 10^3/ul (4.8-10.8)
[2016-10-23 10:25] LABS: ADD UMIC NO; UR ASCORBIC ACID NEGATIVE (NEGATIVE); UR BILIRUBIN (Dip) NEGATIVE (NEGATIVE); UR BLOOD (Dip) NEGATIVE (NEGATIVE); UR CLARITY CLEAR (CLEAR); UR COLOR YELLOW (YELLOW); UR GLUCOSE (Dip) NEGATIVE (NEGATIVE); UR KETONES (Dip) NEGATIVE (NEGATIVE); UR LEUKOCYTE ESTERASE (Dip) NEGATIVE Leu/ul (NEGATIVE); UR NITRITE (Dip) NEGATIVE (NEGATIVE); UR SPECIFIC GRAVITY (Dip) 1.019 (1.003-1.030); UR TOTAL PROTEIN (Dip) NEGATIVE (NEGATIVE); UR UROBILINOGEN (Dip) NEGATIVE (NEGATIVE)
--- NOTE | 2016-10-23 10:44 | RADRPT ---
PROCEDURE: US OB. CLINICAL INDICATION: Vaginal bleeding in . TECHNIQUE: Transabdominal and endovaginal imaging of the uterus is available for review COMPARISON: Pelvic ultrasound dated 10/21/2016 and 09/20/2016 FINDINGS: No intrauterine is identified. The endometrial stripe is homogeneous and measures 8.7 mm in thickness. There is a 2 cm fundal subserosal fibroid. The right ovary measures 2.1 x 1.8 x 2.0 cm and the left ovary measures 3.2 x 2.4 x 2.8 cm. No adnexal mass is identified. Small free fluid i s noted within the pelvis. IMPRESSION: No intrauterine identified. There are no adnexal masses. Correlation with serial beta HC G is recommended, as findings are unchanged over a full menstrual cycle. Please note, ectopic pregna ncy is not excluded. RPTAT: HH .Ramila Kamara MD, MD Date Time Electronically viewed and signed by .Ramila Kamara MD, on 10/23/2016 10:44 .G/
[2016-10-23] MEDS ORDERED: IBUP-1542 PO (11:54)
== END 2016-10-23 12:06 | disposition home or self-care (01) ==
LOC: FTE 08:51
DX: O20.9 Hemorrhage in early pregnancy, unspecified (principal); Z3A.01 Less than 8 weeks gestation of pregnancy
CPT/HCPCS: 36415; 76801; 76817; 81003; 84702; 85025; Z7502